=== PATIENT | female | born 1980 | race Two or more races ===

== ENCOUNTER 2017-02-01 18:47 | Emergency (ER) | payer OTHER ==
--- NOTE | ~2017-02-01 | CR126 ---
[facility] A Service of [facility] RADIOLOGY TEXT RESULTS PATIENT: KENRICK ESCAMILLA LOCATION: [place] : 76 UNIT #: [id number] AGE: [address]: Kaylynn Watson APRN SEX: F ORDER DR: [id number] [place], [place] [address] [id number] E MR#: [id number] Acc #: [id number] NAME: KENRICK ESCAMILLA : 1980 SEX: F STUDY DATE/TIME: 02/01/2017 18:31 UNIT: [id number] ROOM: STUDY DESCRIPTION: CR Foot Complete Min 3 View Lt Attending Physician: Kaylynn Watson A.P.R.N. Ordering Physician: [facility] Primary Care Physician: Richie Noe M.D. MEDICAL IMAGING REPORT This report is preliminary unless electronic signature is present EXAM Left foot 3 views HISTORY Foot and ankle pain for 2 months. No injury. 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 No fracture. No joint space narrowing or dislocation. Tiny plantar calcaneal spur. IMPRESSION 1. No acute findings. 2. 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 3. 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 Dictated by... Mio Mast M.D. THIS IS AN ELECTRONICALLY VERIFIED REPORT Mio Mast M.D. at 02/01/2017 11:18 PM DFL/pcl TD: 02/01/2017 22:35 JOB #: [id number] [facility] A Service [facility] RADIOLOGY TEXT RESULTS PATIENT: KENRICK ESCAMILLA LOCATION: [place] : 76 UNIT #: [id number] AGE: [address]: Kaylynn Watson APRN SEX: F ORDER DR: MEDICAL IMAGING REPORT Page 1 of 1 COPY
[~2017-02-01 18:47] MED LIST: PHENERGAN PO; VICODIN PO
== END 2017-02-01 19:30 | disposition home or self-care (01) ==
LOC: CFTX 18:47
DX: M79.672 Pain in left foot (principal); R03.0 Elevated blood-pressure reading, without diagnosis of hypertension
CPT/HCPCS: 73630; 99283